=== PATIENT | female | born 1950 | race Caucasian/White ===

== ENCOUNTER 2018-01-28 15:23 | Emergency (ER) | payer MEDICARE, MEDICAID ==
[2018-01-28 15:59] VITALS: BP 129/72
--- NOTE | 2018-01-28 16:01 | UC ---
Throat Pain/Nasal Sylvain HPI - HPI Summary HPI Summary: Pt presents with 6 days of sore throat. Pt states has fatigue, mild sinus congestion and PND. No fever, chills. No rash. no cp, sob, abd pain. Pt took APAP a few days ago with little improvement. No analgesia or OTC meds since. No sick contact. + stress related to leaving job. Pt states feels a little "down " - has had this before. no SI/HI Pt declined offer for mental health eval Pt's medications reviewed this visit - History of Current Complaint Chief Complaint: UCRespiratory Stated Complaint: SORE THROAT Time Seen by Provider: 01/28/18 15:40 Hx Obtained From: Patient ?: Yes Onset/Duration: Gradual Onset Severity: Mild Pain Intensity: 5 Pain Scale Used: 0-10 Numeric Associated Signs & Symptoms: Positive: Sinus Discomfort, Nasal Discharge. Negative: Fever - Allergies/Home Medications Allergies/Adverse Reactions: Allergies Allergy/AdvReac Type Severity Reaction Status Date / Time aspirin AdvReac Unknown hx of Verified 01/28/18 15:49 peptic ulcer. Avoids aspirn Home Medications: Home Medications metFORMIN* [Glucophage 500 MG TAB *] 500 mg PO DAILY 01/28/18 [History Confirmed 01/28/18] PMH/Surg Hx/FS Hx/Imm Hx Previously Healthy: Yes Endocrine History: Diabetes Psychological History: Depression - Surgical History Surgical History: Yes Surgery Procedure, Year, and Place: Bladder Lift, ~1990, [place]; (?right) Oopherectomy, ~1987, [place]; Cholecystectomy, ~1985, [place]; Tubal Ligation , ~1978, [place]; Tonsillectomy, ~1973, [place]. COLONOSCOPY OCT 2017 - Family History Known Family History: Positive: Cardiac Disease, Hypertension, Diabetes - Social History Occupation: Unemployed Lives: Alone Alcohol Use: None Substance Use Type: None Smoking Status (MU): Former Smoker Type: Cigarettes Amount Used/How Often: 1-2 PPD Length of Time of Smoking/Using Tobacco: ~ 10 Years Have You Smoked in the Last Year: No When Did the Patient Quit Smoking/Using Tobacco: ~1974 - Immunization History Most Recent Influenza Vaccination: Not the 2016/2017 Season Review of Systems Constitutional: Fatigue Skin: Negative Eyes: Negative ENT: Sore Throat Respiratory: Negative Psychological: Negative - "little down" No SI/HI states "just doesn't feel well " All Other Systems Reviewed And Are Negative: Yes Physical Exam Triage Information Reviewed: Yes Appearance: Well-Appearing, No Pain Distress Vital Signs: Initial Vital Signs Temp 98.8 F 01/28/18 15:50 Pulse 74 01/28/18 15:50 Resp 18 01/28/18 15:50 BP 129/72 01/28/18 15:50 Pulse Ox 98 01/28/18 15:50 Vital Signs Reviewed: Yes Eye Exam: Normal Eyes: Positive: Conjunctiva Clear ENT: Positive: Hearing grossly normal, Pharyngeal erythema, Other - Pt with small ulcerative lesion left soft palate turbinates inflammed uvula midline no erythema, no exudate Dental Exam: Normal Neck exam: Normal Neck: Positive: Supple, Nontender, No Lymphadenopathy Respiratory Exam: Normal Respiratory: Positive: Chest non-tender, Lungs clear, Normal breath sounds, No respiratory distress, No accessory muscle use Cardiovascular Exam: Normal Cardiovascular: Positive: RRR, No Murmur, Pulses Normal Abdominal Exam: Normal Abdomen Description: Positive: Nontender, No Organomegaly, Soft. Negative: CVA Tenderness (R), CVA Tenderness (L) Bowel Sounds: Positive: Present Musculoskeletal Exam: Normal Musculoskeletal: Positive: Strength Intact Neurological Exam: Normal Neurological: Positive: Alert Psychological Exam: Normal Psychological: Positive: Normal Response To Family Skin Exam: Normal Throat Pain/Nasal Course/Dx - Course Course Of Treatment: Pt with sore throat x 6 days, fatigue and congestion. pt note to have small ulcerative lesion left soft palate c/w viral. turibinates inflammed. + PND. Pt VS reviewed. Pt trialed lidocaine with good effect for pain. Will Rx lidocaine. motrin/apap. return precaution. secretion precaution. f/u with PCP. d/w pt mental health resources - pt states she is connected and comfortable - Differential Dx/Diagnosis Provider Diagnoses: phryngitis. herpangina Discharge - Sign-Out/Discharge Documenting (check all that apply): Discharge/Admit/Transfer - Discharge Plan Condition: Stable Disposition: HOME Prescriptions: Lidocaine 2% VISCOUS* [Xylocaine 2% Viscous*] 15 ml SWISH SPIT Q4H PRN #1 btl PRN Reason: Sore Throat Patient Education Materials: Pharyngitis (ED), Gingivostomatitis (ED) Referrals: Manish Ferrara PA [Primary Care Provider] - Additional Instructions: - Okay to alternate ibuprofen (Advil, Motrin) and Tylenol every 3 hours for pain. Take with food. Do NOT take for more than 4-5 days - Okay to gargle and spit every 4 hours as needed for pain, Okay to use numbing medication as prescribed. - Stay well hydrated - frequent sips of cold fluids will be soothing to your throat (popsicles, jello, ice cream, ice water). Avoid excess caffeine until your symptoms have resolved. - Do not share eating, drinking utensils. Throw out your toothbrush when your symptoms resolved -Throat infections are spread by oral secretions - do not share eating or drinking utensils until you symptoms are resolved. Clean items that may get your secretions such as cell phones, ipads, computer mouse, television remotes - Contact your doctor to arrange a follow-up appointment this week. - Billing Disposition and Condition Condition: STABLE Disposition: HOME
[2018-01-28] MEDS ORDERED: Lidocaine 2% VISCOUS* 15 ML UDC PO ONE (16:14)
== END 2018-01-28 16:44 | disposition home or self-care (01) ==
LOC: UCCORT 15:23
DX: J02.9 Acute pharyngitis, unspecified (principal); B08.5 Enteroviral vesicular pharyngitis; Z88.6 Allergy status to analgesic agent; E11.9 Type 2 diabetes mellitus without complications; Z79.84 Long term (current) use of oral hypoglycemic drugs; Z87.891 Personal history of nicotine dependence
CPT/HCPCS: 87651; 99212; G0463

== ENCOUNTER 2018-02-25 07:06 | Emergency (ER) | payer MEDICARE, MEDICAID ==
[2018-02-25 07:27] VITALS: BP 116/64
--- NOTE | 2018-02-25 08:12 | UC ---
Throat Pain/Nasal Sylvain HPI - HPI Summary HPI Summary: PT P/W 1 MONTH H/O OF SINUS CONGESTION/MILD PRESSURE, NASAL DRAINAGE, SORE THROAT. 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 NOT INTERFERING WITH SLEEP. PT ADMITS TO HISTORY OF ALLERGIES. HAS TRIED NUMEROUS MEANS OF REMEDIATING HER ALLERGIES INCLUDING SALINE/MEDICATED SPRAYS AND ANTIHISTAMINES. NONE OF THEM HAVE IMPROVED HER SITUATION. WAS SEEN HERE ON 01/28/18 FOR SORE THROAT. STREP TEST WAS NEG. PT ALSO REPORTS HEEL PAIN X 1 MONTH THAT IS WORSE WITH WEIGHT BEARING AND WAKING IN AM AM. 3/10 ACHY PAIN. NO H/O INJURY. PAIN IS RECURRENT. PT HAS TRIES ORTHODICS AND PT. WITH NO BENEFIT. - History of Current Complaint Chief Complaint: UCGeneralIllness Stated Complaint: SORE THROAT Time Seen by Provider: 02/25/18 07:33 Hx Obtained From: Patient ?: No Onset/Duration: Gradual Onset Severity: Moderate Pain Intensity: 3 Cough: Nonproductive Associated Signs & Symptoms: Positive: Dysphagia, Sinus Discomfort, Nasal Discharge. Negative: FB Sensation, Drooling, Wheezing, Hoarseness, Fever, Vomiting, Rash Related History: Seasonal Allergies - Allergies/Home Medications Allergies/Adverse Reactions: Allergies Allergy/AdvReac Type Severity Reaction Status Date / Time aspirin AdvReac Unknown hx of Verified 02/25/18 07:23 peptic ulcer. Avoids aspirn PMH/Surg Hx/FS Hx/Imm Hx - Additional Past Medical History Additional PMH: MENIER'S DZ Endocrine History: Diabetes - PRE GI/ History: Ulcer, Diverticulitis, Other Other GI/ History: URINARY INCONTINENCE Psychological History: Depression - Surgical History Surgical History: Yes Surgery Procedure, Year, and Place: Bladder Lift, ~1990, [place]; (?right) Oopherectomy, ~1987, [place]; Cholecystectomy, ~1985, [place]; Tubal Ligation , ~1978, [place]; Tonsillectomy, ~1973, [place]. COLONOSCOPY OCT 2017. cataract surgery 2017 - Family History Known Family History: Positive: Cardiac Disease, Hypertension, Diabetes - Social History Alcohol Use: None Substance Use Type: None Smoking Status (MU): Former Smoker Type: Cigarettes Amount Used/How Often: 1-2 PPD Length of Time of Smoking/Using Tobacco: ~ 10 Years Have You Smoked in the Last Year: No When Did the Patient Quit Smoking/Using Tobacco: ~1975 - Immunization History Most Recent Influenza Vaccination: Not the 2016/2016 Season Review of Systems Constitutional: Negative Skin: Negative Eyes: Negative ENT: Sore Throat, Ear Ache, Nasal Discharge, Sinus Congestion, Sinus Pain/ Tenderness - MILD Respiratory: Cough - MINIMAL Cardiovascular: Negative Gastrointestinal: Negative Musculoskeletal: Other: - HEEL PAIN Is Patient Immunocompromised?: No All Other Systems Reviewed And Are Negative: Yes Physical Exam Triage Information Reviewed: Yes Appearance: Well-Appearing, No Pain Distress, Well-Nourished Vital Signs: Initial Vital Signs Temp 97.6 F 02/25/18 07:20 Pulse 73 02/25/18 07:20 Resp 16 02/25/18 07:20 BP 116/64 02/25/18 07:20 Pulse Ox 98 02/25/18 07:20 Vital Signs Reviewed: Yes Eyes: Positive: Conjunctiva Clear, Other: - SUB ORBITAL CONGESTION. Negative: Discharge ENT: Positive: Hearing grossly normal, Pharynx normal, Nasal congestion, Nasal drainage, TMs normal, Other - PALE BOGGY NASAL MUCOSA. Negative: Tonsillar swelling, Tonsillar exudate, Trismus, Muffled voice, Hoarse voice, Dental tenderness, Sinus tenderness Neck: Positive: Supple, Nontender, No Lymphadenopathy Respiratory: Positive: Lungs clear, Normal breath sounds, No respiratory distress, No accessory muscle use Cardiovascular: Positive: RRR, No Murmur Musculoskeletal: Positive: Other: - TENDER POINT ON LEFT HEEL Neurological: Positive: Alert, Muscle Tone Normal Psychological: Positive: Other: - FLAT, SHY Skin Exam: Normal Throat Pain/Nasal Course/Dx - Differential Dx/Diagnosis Differential Diagnosis/HQI/PQRI: Sinusitis, URI, Other - ALLERGIES, PLANTAR FASCIITIS Provider Diagnoses: ALLERGIES, PLANTAR FASCIITIS, SORE THROAT Discharge - Sign-Out/Discharge Documenting (check all that apply): Discharge/Admit/Transfer - Discharge Plan Condition: Stable Disposition: HOME Patient Education Materials: Allergies (ED), Pharyngitis (ED), Plantar Fasciitis (ED), Plantar Fasciitis Exercises (GEN) Referrals: Manish Ferrara PA [Primary Care Provider] - (follow up in 1-2 weeks) Additional Instructions: TRY USING THE NETTI POT IN THE MORNINGS DISCUSSED. YOU MUST ALWAYS USE CLEAN WATER. REMEMBER, POSTURE IS AN IMPORTANT FACTOR IN SINUS DRAINAGE. MOVE YOUR NECK, BREATHE. WE HAVE SENT A THROAT CULTURE TO THE LAB. YOU WILL BE CALLED WITH ABNORMAL RESULTS. WE HAVE OFFERED YOU A REFERRAL TO PODIATRY AND PHYSICAL THERAPY FOR YOUR HEEL PAIN. YOU HAVE DECLINED AT THIS TIME. IF YOU CHANGE YOUR MIND, YOU CAN ASK YOUR PCP FOR THE SAME. - Billing Disposition and Condition Condition: STABLE Disposition: Home
== END 2018-02-25 08:10 | disposition home or self-care (01) ==
LOC: UCCORT 07:06
DX: J30.2 Other seasonal allergic rhinitis (principal); M72.2 Plantar fascial fibromatosis; J02.9 Acute pharyngitis, unspecified; Z88.6 Allergy status to analgesic agent; R73.03 Prediabetes; Z87.891 Personal history of nicotine dependence
CPT/HCPCS: 87070; 99211; G0463

== ENCOUNTER 2019-09-12 17:24 | Emergency (ER) | payer MEDICARE, MEDICAID ==
[2019-09-12 17:59] VITALS: BP 125/65
[2019-09-12] MEDS ORDERED: Acetaminophen TAB* 325 MG PO ONE (18:06)
--- NOTE | 2019-09-12 18:37 | UC ---
FLU HPI - HPI Summary HPI Summary: 68-year-old woman comes in with a chief complaint of fevers chills sinus pressure runny nose cough. Patient's had a runny nose for weeks. Rhinorrhea is yellow. She has frontal sinus pressure and headache. She also has a cough and chest congestion. The last couple days she is developed a fever. Just prior to arrival she had a negative influenza swab. She denies any neck pain or stiffness. No complaint of any dysuria or diarrhea or abdominal pain. - History of Current Complaint Chief Complaint: UCRespiratory Stated Complaint: COUGH/FEVER/CHILLS Time Seen by Provider: 09/12/19 18:06 Pain Intensity: 6 - Allergy/Home Medications Allergies/Adverse Reactions: Allergies Allergy/AdvReac Type Severity Reaction Status Date / Time aspirin AdvReac Unknown hx of Verified 09/12/19 17:48 peptic ulcer. Avoids aspirn Home Medications: Home Medications Ibuprofen TAB* [Advil TAB*] 200 mg PO Q6H PRN 09/12/19 [History Confirmed ] PMH/Surg Hx/FS Hx/Imm Hx Previously Healthy: Yes Endocrine History: Diabetes - Surgical History Surgical History: Yes Surgery Procedure, Year, and Place: Bladder Lift, ~1990, [place]; (?right) Oopherectomy, ~1987, [place]; Cholecystectomy, ~1985, [place]; Tubal Ligation , ~1978, [place]; Tonsillectomy, ~1973, [place]. COLONOSCOPY OCT 2017. cataract surgery 2016 - Family History Known Family History: Positive: Cardiac Disease, Hypertension, Diabetes - Social History Alcohol Use: None Substance Use Type: None Smoking Status (MU): Former Smoker Type: Cigarettes Amount Used/How Often: 1-2 PPD Length of Time of Smoking/Using Tobacco: ~ 10 Years Have You Smoked in the Last Year: No When Did the Patient Quit Smoking/Using Tobacco: ~1974 - Immunization History Most Recent Influenza Vaccination: Not the 2016/2017 Season Review of Systems All Other Systems Reviewed And Are Negative: Yes Constitutional: Positive: Fever, Other - SEE HPI Skin: Positive: Negative Eyes: Positive: Negative ENT: Positive: Sore Throat, Nasal Discharge, Sinus Congestion, Sinus Pain/ Tenderness Respiratory: Positive: Cough, Other - SEE HPI Cardiovascular: Positive: Negative Gastrointestinal: Positive: Negative Genitourinary: Positive: Negative Motor: Positive: Negative Neurovascular: Positive: Negative Musculoskeletal: Positive: Negative Neurological: Positive: Negative Psychological: Positive: Negative Is Patient Immunocompromised?: No Physical Exam Triage Information Reviewed: Yes Appearance: No Pain Distress, Well-Nourished, Ill-Appearing - MILD Vital Signs: Initial Vital Signs Temp 100.8 F 09/12/19 17:51 Pulse 112 09/12/19 17:51 Resp 20 09/12/19 17:51 BP 125/65 09/12/19 17:51 Pulse Ox 97 09/12/19 17:51 Vital Signs Reviewed: Yes Eye Exam: Normal Eyes: Positive: Conjunctiva Clear ENT: Positive: Pharyngeal erythema, Nasal congestion, Nasal drainage, TMs normal Neck: Positive: Supple Respiratory: Positive: Lungs clear, Normal breath sounds, No respiratory distress Cardiovascular: Positive: RRR Musculoskeletal: Positive: Strength Intact, ROM Intact Neurological: Positive: Alert, Muscle Tone Normal Psychological: Positive: Age Appropriate Behavior Skin Exam: Normal Flu Course/Dx - Course Course Of Treatment: Belt And Link Assembly Supervisor: Baisl Banda F ([id number]) Decontaminator: TAMIKO, ( NUANCE) Report Date: 09/12/2019 18:30:00 Report Status: Final ====== Start of Report Content Patient Name: DWIGHT AJ Ordering Physician: Jaswinder Ba MD Acct.#: [id number] : 1950 Age: 68 Sex: F Location: [facility] Exam Date: 09/12/191805 ADM Status: REG ER Order Information: CHEST PA LAT 2 VWS Accession Number: [id number] CPT: 65287 INDICATION: Fever and cough. COMPARISON: There are no prior studies available for comparison. TECHNIQUE: Dual-energy PA and lateral views of the chest were obtained. FINDINGS: The heart is within normal limits in size. Mediastinal and hilar contours appear within normal limits. The lungs are underinflated. There is mild atelectasis at the left lung base. The lungs are otherwise clear. No pleural effusion is seen. IMPRESSION: LOW LUNG VOLUMES, NO EVIDENCE FOR ACUTE FINDING. <Electronically signed by Basil Banda MD in [place]> 09/12/191825 Dictated By: Basil Banda MD Dictated Date/Time: 09/12/191824 Transcribed Date/Time: 09/12/191824 Copy to: CC:Manish SANTANA; Jaswinder Ba MD Imaging - [facility] - [place] [facility] [address] [address] ph [phone]) ph ([phone]) ph ([phone]) End of Report Content I discussed the x-ray results with the patient. No sign of a pneumonia. No dysuria or abdominal pain. No neck pain or neck stiffness. Headache is frontal. Patient has had rhinorrhea for weeks. She now has a frontal headache. Most probable cause of her fever and illnesses a sinusitis. We'll treat with Augmentin. I discussed with the patient that if she did not improve or she worsens she emergency department. - Differential Dx/Diagnosis Provider Diagnosis: Sinusitis, Influenza-like illness Discharge ED - Sign-Out/Discharge Documenting (check all that apply): Patient Departure All imaging exams completed and their final reports reviewed: Yes - Discharge Plan Condition: Stable Disposition: HOME Prescriptions: Amoxicillin/Clavulanate TAB* [Augmentin TAB 875*] 875 mg PO BID #20 tab Patient Education Materials: Sinusitis (ED) Referrals: Manish Ferrara PA [Primary Care Provider] - Additional Instructions: FOLLOW UP WITH YOUR DOCTOR IF NOT COMPLETELY IMPROVED. GO TO THE EMERGENCY DEPARTMENT IF NOT IMPROVING OR WORSE; SHORTNESS OF BREATH, YOU FEEL LIKE PASSING OUT, CONFUSION, YOU FEEL ILL OR ANY QUESTIONS OR CONCERNS. - Billing Disposition and Condition Condition: STABLE Disposition: Home
== END 2019-09-12 18:54 | disposition home or self-care (01) ==
LOC: UCCORT 17:24
DX: J32.9 Chronic sinusitis, unspecified (principal); R09.89 Other specified symptoms and signs involving the circulatory and respiratory systems; R05 Cough; E11.9 Type 2 diabetes mellitus without complications; J02.9 Acute pharyngitis, unspecified; Z88.6 Allergy status to analgesic agent; Z87.891 Personal history of nicotine dependence
CPT/HCPCS: 71046; 99212; A9270-GY; G0463